=== PATIENT | male | born 1990 | race Caucasian/White ===

== ENCOUNTER 2018-06-18 11:04 | Emergency (ER) | payer OTHER ==
[~2018-06-18] VITALS: Ht 177.8 cm; Wt 79.5 kg
[~2018-06-18 11:04] MED LIST: NO HOME MEDICATIONS
[2018-06-18 11:16] VITALS: TEMP 97.7
[2018-06-18] MEDS ORDERED: CRUTCHES MC (12:30)
[2018-06-18 12:35] VITALS: BP 121/61; PULSE 61
== END 2018-06-18 13:00 | disposition home or self-care (01) ==
LOC: COL.ER 11:04
DX: S93.402A Sprain of unspecified ligament of left ankle, initial encounter (principal); X50.0XXA Overexertion from strenuous movement or load, initial encounter; Y92.828 Other wilderness area as the place of occurrence of the external cause